=== PATIENT | male | born 1945 | race Asian ===

== ENCOUNTER 2023-03-09 07:13 | Emergency (ER) | payer OTHER ==
[~2023-03-09] VITALS: Ht 175.3 cm; Wt 514.8 kg
[2023-03-09 07:21] VITALS: BP_SYST 140
[2023-03-09] MEDS ORDERED: ONDANSETRON HCL 4 MG/2 ML VIAL IVP ONE ×2 (07:30→08:30)
[2023-03-09] MEDS ORDERED: KETOROLAC TROMETHAMINE 30 MG VIAL IVP ONE (07:30)
[2023-03-09] MEDS ORDERED: NACL 0.9% 1,000 ML IV ONE (07:30)
[2023-03-09] MEDS ORDERED: FAMOTIDINE PF 20 MG/2 ML VIAL IVP ONE (07:45)
[2023-03-09 07:55] LABS: BILIRUBIN,URINE NEGATIVE (NEGATIVE); BLOOD, URINE 2+ (NEGATIVE); COLOR,URINE YELLOW (YELLOW); GLUCOSE,URINE NEGATIVE (NEGATIVE); KETONES,URINE 1+ (NEGATIVE); LEUKOCYTE ESTERASE ,URINE 2+ (NEGATIVE); NITRITE, URINE POSITIVE (NEGATIVE); PROTEIN URINE NEGATIVE (NEGATIVE); UROBILINOGEN,URINE 0.2 (0.2-1.0)
[2023-03-09 07:57] LABS: BASOPHILS % (AUTO) 0.4 % (0.0-2.0); EOSINOPHILS # (AUTO) 0.1 K/uL (0.0-0.4); EOSINOPHILS % (AUTO) 0.8 % (0.0-4.0); HEMOGLOBIN 15.7 g/dL (14.0-18.0); LYMPHOCYTES # (AUTO) 0.6 K/uL (1.0-5.5); LYMPHOCYTES % (AUTO) 5.9 % (20.5-51.5); MEAN CORPUSCULAR HEMOGLOBIN 32 pg (27-31); MEAN CORPUSCULAR HGB CONC 34 % (32-36); MEAN CORPUSCULAR VOLUME 97 fL (79.0-98.0); MONOCYTES # (AUTO) 0.6 K/uL (0.0-1.0); MONOCYTES % (AUTO) 5.7 % (1.7-9.3); NEUTROPHILS % (AUTO) 87.2 % (40.0-70.0); PLATELET COUNT (AUTO) 117 K/uL (130-430); RED BLOOD CELL COUNT(AUTO) 4.87 MIL/uL (4.2-6.2); RED CELL DISTRIBUTION WIDTH 13.4 % (9.0-15.0); WHITE BLOOD COUNT (AUTO) 10.3 K/uL (4.8-10.8)
[2023-03-09 07:59] LABS: CLARITY/URINE HAZY (CLEAR)
[2023-03-09 08:10] LABS: BACTERIA,URINE MODERATE /HPF (None Seen); MUCUS,URINE 1+ /LPF (None Seen); RBC,URINE 0-3 /HPF (0-3)
[2023-03-09 08:25] LABS: ALANINE AMINOTRANSFERASE 27 U/L (12-78); ALBUMIN 3.5 g/dL (3.4-4.8); ANION GAP 10 (5-15); ASPARTATE AMINOTRANSFERASE 25 U/L (10-37); CALCIUM 9.2 mg/dL (8.4-11.0); CHLORIDE 96 mmol/L (98-107); CREATININE 1.23 mg/dL (0.55-1.30); GLUCOSE 128 mg/dL (70-99); LIPASE 111 U/L (73-393); TOTAL BILIRUBIN 1.3 mg/dL (0.0-1.0); UREA NITROGEN, BLOOD 17 mg/dL (8-21)
[2023-03-09] MEDS ORDERED: cefTRIAXone 1 GM IVPB PREMIX 50 ML IV ONE (08:30)
[2023-03-09] MEDS ORDERED: MORPHINE 2 MG/ML INJ. SYRINGE IVP ONE (09:00)
[2023-03-09] MEDS ORDERED: MAG HYDROX/AL HYDROX/SIMETH 30 ML, LIDOCAINE VISCOUS 2% 15ML (PO) 15 ML, DICYCLOMINE HC... PO ONE ×3 (09:30)
[2023-03-09] MEDS ORDERED: DICY10CA13 PO (10:11)
[2023-03-09] MEDS ORDERED: PEPTAB PO (10:11)
[2023-03-09] MEDS ORDERED: ONDA-8 TL (10:11)
[2023-03-09] MEDS ORDERED: CEPH-548 PO (10:13)
[2023-03-09] MEDS ORDERED: DIPHENHYDRAMINE INJ 50 MG/ML VIAL IVP ONE (10:45)
[2023-03-09] MEDS ORDERED: METOCLOPRAMIDE HCL 10 MG/2 ML VIAL IVP ONE (10:45)
[2023-03-09] MEDS ORDERED: NAPR-1172 PO (11:10)
[2023-03-09 11:34] VITALS: BP_SYST 110
== END 2023-03-09 11:37 | disposition home or self-care (01) ==
LOC: SED 07:13
DX: N20.1 Calculus of ureter (principal); N39.0 Urinary tract infection, site not specified; A05.9 Bacterial foodborne intoxication, unspecified; R11.2 Nausea with vomiting, unspecified; J44.9 Chronic obstructive pulmonary disease, unspecified; Z79.899 Other long term (current) drug therapy
CPT/HCPCS: 99285; 96375; 74176; 96365; 96361; 80053; 81000; 83690; 85025; 87086; 36415; 74021; 76376; 96376; J2001; J0696; J1200; J3490; J1885; J2765; J2405; J2270; J7030

== ENCOUNTER 2023-04-20 14:04 | Emergency (ER) | payer OTHER ==
[~2023-04-20] VITALS: Ht 175.3 cm; Wt 62.6 kg
[~2023-04-20 14:04] MED LIST: CEPH-548 PO; DICY10CA13 PO; NAPR-1172 PO; ONDA-8 TL; PEPTAB PO
[2023-04-20 14:54] VITALS: BP_SYST 124
[2023-04-20] MEDS ORDERED: ACETAMINOPHEN 325 MG TABLET PO ONE (15:30)
[2023-04-20] MEDS ORDERED: NACL 0.9% 1,000 ML IV ONE ×2 (15:30→19:00)
[2023-04-20] MEDS ORDERED: ONDANSETRON HCL 4 MG/2 ML VIAL IVP ONE (16:00)
[2023-04-20 16:16] LABS: BILIRUBIN,URINE NEGATIVE (NEGATIVE); CLARITY/URINE CLEAR (CLEAR); COLOR,URINE YELLOW (YELLOW); GLUCOSE,URINE NEGATIVE (NEGATIVE); KETONES,URINE NEGATIVE (NEGATIVE); PROTEIN URINE 1+ (NEGATIVE)
[2023-04-20 16:17] LABS: BACTERIA,URINE FEW /HPF (None Seen); BLOOD, URINE 2+ (NEGATIVE); LEUKOCYTE ESTERASE ,URINE NEGATIVE (NEGATIVE); NITRITE, URINE NEGATIVE (NEGATIVE); UROBILINOGEN,URINE 0.2 (0.2-1.0); WBC,URINE 0-3 /HPF (0-3)
[2023-04-20 16:18] LABS: MUCUS,URINE None Seen /LPF (None Seen)
--- NOTE | 2023-04-20 16:26 | NUR ---
MOVED TO BED 8
--- NOTE | 2023-04-20 16:28 | NUR ---
Patient arrived to ED hallway and then to room 8 for c/o general weakness and fever "for a few days." Patient said that he comes to the hospital often. Patient's family noticed that patient was shaking in morning and was "feeling hot" so patient was brought to the ER to get checked. Patient takes medications prescribed from PCP. Will continue to monitor. Call light within reach. Dr. Souza at bedside to MSE patient. Will continue to monitor.
[2023-04-20 16:35] LABS: ANION GAP 8 (5-15); CALCIUM 9.1 mg/dL (8.4-11.0); CHLORIDE 91 mmol/L (98-107); CREATININE 1.08 mg/dL (0.55-1.30); GLUCOSE 121 mg/dL (70-99); UREA NITROGEN, BLOOD 11 mg/dL (8-21)
[2023-04-20 16:38] LABS: INR 1.1 (0.80-1.20); PROTHROMBIN TIME 11.2 SECS (9.5-12.5)
[2023-04-20 16:39] LABS: BASOPHILS % (AUTO) 0.1 % (0.0-2.0); EOSINOPHILS % (AUTO) 0.2 % (0.0-4.0); HEMATOCRIT 34.4 % (36-54); HEMOGLOBIN 11.8 g/dL (14.0-18.0); LYMPHOCYTES # (AUTO) 0.6 K/uL (1.0-5.5); LYMPHOCYTES % (AUTO) 5.3 % (20.5-51.5); MEAN CORPUSCULAR HEMOGLOBIN 33 pg (27-31); MEAN CORPUSCULAR HGB CONC 34 % (32-36); MEAN CORPUSCULAR VOLUME 95 fL (79.0-98.0); MONOCYTES # (AUTO) 1.1 K/uL (0.0-1.0); MONOCYTES % (AUTO) 8.9 % (1.7-9.3); NEUTROPHILS # (AUTO) 10.1 K/uL (1.8-7.7); NEUTROPHILS % (AUTO) 85.5 % (40.0-70.0); PLATELET COUNT (AUTO) 259 K/uL (130-430); RED BLOOD CELL COUNT(AUTO) 3.64 MIL/uL (4.2-6.2); RED CELL DISTRIBUTION WIDTH 13.5 % (9.0-15.0); WHITE BLOOD COUNT (AUTO) 11.8 K/uL (4.8-10.8)
[2023-04-20 16:44] LABS: ALANINE AMINOTRANSFERASE 32 U/L (12-78); ALBUMIN 2.2 g/dL (3.4-4.8); ASPARTATE AMINOTRANSFERASE 36 U/L (10-37); TOTAL BILIRUBIN 0.9 mg/dL (0.0-1.0)
[2023-04-20] MEDS ORDERED: IPRATROPIUM/ALBUTEROL SULFATE 3 ML AMPUL.NEB (DUONEB) INH ONE (17:45)
[2023-04-20] MEDS ORDERED: AZITHROMYCIN 250 MG TABLET PO ONE (19:00)
--- NOTE | 2023-04-20 19:00 | NUR ---
Report given to HOUSTON Kim for continuity of care. Patient stable.
--- NOTE | 2023-04-20 19:25 | NUR ---
Assumed care from [place] RN. Patient is alert and oriented x4, repirations even and unlabored, speaking in full complletee sentences and denied any acute distress at this time. NS fluid bolus is still running. at bedside.
[2023-04-20] MEDS ORDERED: BENZ100C92 PO (20:35)
[2023-04-20] MEDS ORDERED: ZIT250 PO (20:35)
[2023-04-20] MEDS ORDERED: ALBMDI INH (20:35)
[2023-04-20] MEDS ORDERED: BUDE6.9H INH (20:35)
[2023-04-20 20:52] VITALS: BP_SYST 109
--- NOTE | 2023-04-20 20:59 | NUR ---
Patient given written and verbal discharge instructions and verbalizes understanding. ER MD discussed with patient the results and treatment provided. Patient in stable condition. ID arm band removed. IV catheter removed intact and dressing applied, no active bleeding. Rx of ALBUTEROL, BENZONATATE, SYMBICORT, AZITHROMYCIN given. Patient educated on pain management and to follow up with PMD. Pain Scale 0/10. Opportunity for questions provided and answered. Medication side effect fact sheet provided.
== END 2023-04-20 20:58 | disposition home or self-care (01) ==
LOC: SED 14:04
DX: J44.1 Chronic obstructive pulmonary disease with (acute) exacerbation (principal); J40 Bronchitis, not specified as acute or chronic; E87.1 Hypo-osmolality and hyponatremia; R50.9 Fever, unspecified; R05.9 Cough, unspecified; Z79.899 Other long term (current) drug therapy; Z20.822 Contact with and (suspected) exposure to COVID-19
CPT/HCPCS: 99285; 96374; 71045; 96361; 87426; 80053; 81000; 83880; 85025; 85610; 85730; 87040; 84484; 36415; 93005; 94640; 83605; 87804 ×2; J2405; J7030; Q0144

== ENCOUNTER 2023-07-12 13:26 | Emergency (ER) | payer OTHER ==
[~2023-07-12] VITALS: Ht 175.3 cm; Wt 65.8 kg
[~2023-07-12 13:26] MED LIST changes: +ALBMDI INH; +BENZ100C92 PO; +BUDE6.9H INH; +DICY-14 PO; -DICY10CA13 PO; +ZIT250 PO
[2023-07-12 13:50] VITALS: BP_SYST 123; PULSE 97; RESP 17; TEMP 98.3; O2SAT 97
[2023-07-12] MEDS ORDERED: ONDANSETRON 4 MG ODT TAB PO ONE (14:00)
[2023-07-12 14:06] LABS: BASOPHILS % (AUTO) 0.4 % (0.0-2.0); EOSINOPHILS # (AUTO) 0.3 K/uL (0.0-0.4); EOSINOPHILS % (AUTO) 5.6 % (0.0-4.0); HEMATOCRIT 40.6 % (36-54); HEMOGLOBIN 13.4 g/dL (14.0-18.0); MEAN CORPUSCULAR HEMOGLOBIN 32 pg (27-31); MEAN CORPUSCULAR HGB CONC 33 % (32-36); MEAN CORPUSCULAR VOLUME 96 fL (79.0-98.0); MONOCYTES # (AUTO) 0.3 K/uL (0.0-1.0); MONOCYTES % (AUTO) 5.6 % (1.7-9.3); NEUTROPHILS # (AUTO) 3.8 K/uL (1.8-7.7); NEUTROPHILS % (AUTO) 70.4 % (40.0-70.0); PLATELET COUNT (AUTO) 133 K/uL (130-430); RED BLOOD CELL COUNT(AUTO) 4.24 MIL/uL (4.2-6.2); RED CELL DISTRIBUTION WIDTH 14.9 % (9.0-15.0); WHITE BLOOD COUNT (AUTO) 5.4 K/uL (4.8-10.8)
[2023-07-12] MEDS ORDERED: ONDANSETRON HCL 4 MG/2 ML VIAL IVP ONE ×2 (14:15→15:45)
[2023-07-12] MEDS ORDERED: KETOROLAC TROMETHAMINE 30 MG VIAL IVP ONE (14:15)
[2023-07-12 14:17] LABS: BILIRUBIN,URINE NEGATIVE (NEGATIVE); CLARITY/URINE Clear (CLEAR); COLOR,URINE YELLOW (YELLOW); GLUCOSE,URINE NEGATIVE (NEGATIVE); KETONES,URINE 1+ (NEGATIVE); NITRITE, URINE NEGATIVE (NEGATIVE); PROTEIN URINE NEGATIVE (NEGATIVE); UROBILINOGEN,URINE 0.2 (0.2-1.0)
[2023-07-12 14:20] LABS: ANION GAP 9 (5-15); CARBON DIOXIDE 26 mmol/L (23-29); CHLORIDE 93 mmol/L (98-107); CREATININE 0.72 mg/dL (0.55-1.30); GLUCOSE 109 mg/dL (74-106); POTASSIUM 3.4 mmol/L (3.5-5.1); SODIUM SERUM 128 mmol/L (136-145); UREA NITROGEN, BLOOD 10 mg/dL (8-21)
[2023-07-12 14:22] LABS: ACETONE, SERUM NEGATIVE (NEGATIVE)
[2023-07-12 14:24] LABS: PROTHROMBIN TIME 10.3 SECS (9.5-12.5)
[2023-07-12 14:25] LABS: BLOOD, URINE TRACE (NEGATIVE); LEUKOCYTE ESTERASE ,URINE TRACE (NEGATIVE)
[2023-07-12 14:27] LABS: BACTERIA,URINE FEW /HPF (None Seen); MUCUS,URINE None Seen /LPF (None Seen); RBC,URINE 0-3 /HPF (0-3)
[2023-07-12 14:40] LABS: ALANINE AMINOTRANSFERASE 15 U/L (12-78); ALBUMIN 3.4 g/dL (3.4-4.8); AMYLASE 185 U/L (0-100); ASPARTATE AMINOTRANSFERASE 22 U/L (10-37); LIPASE 487 U/L (73-393); TOTAL BILIRUBIN 1.1 mg/dL (0.0-1.0); TOTAL PROTEIN, SERUM 7.4 g/dL (6.4-8.3)
[2023-07-12] MEDS ORDERED: NACL 0.9% 1,000 ML IV ONE (15:15)
[2023-07-12] MEDS ORDERED: NS 500 ML IV ONE (15:45)
[2023-07-12] MEDS ORDERED: MECLIZINE HCL 25 MG TABLET (ANITVERT) PO ONE (16:15)
[2023-07-12] MEDS ORDERED: cefTRIAXone 1 GM in D5W 50 ML IV ONE (17:15)
[2023-07-12 17:19] VITALS: BP_SYST 125; PULSE 87; RESP 16; TEMP 98.2; O2SAT 99
[2023-07-12] MEDS ORDERED: cefTRIAXone 1 GM VIAL ONE (17:29)
[2023-07-12] MEDS ORDERED: ONDA-8 TL (17:40)
[2023-07-12] MEDS ORDERED: SULF1TAB48 PO (17:40)
[2023-07-12] MEDS ORDERED: MECL-108 PO (17:40)
== END 2023-07-12 17:34 | disposition left against medical advice (07) ==
LOC: SED 13:26
DX: N39.0 Urinary tract infection, site not specified (principal); R11.10 Vomiting, unspecified; R42 Dizziness and giddiness; R53.1 Weakness; E87.1 Hypo-osmolality and hyponatremia; Z79.899 Other long term (current) drug therapy; J44.9 Chronic obstructive pulmonary disease, unspecified
CPT/HCPCS: 99285; 74176; 96365; 96361; 96375; 80053; 81000; 82009; 82150; 83690; 85025; 85610; 85730; 87086; 84484; 36415; 93005; 76376; 96376; 83605; 82397; J8597; Q0162; J0696; J1885; J2405; J7030